=== PATIENT | female | born 1995 | race Caucasian/White ===

== ENCOUNTER 2023-08-24 16:33 | Emergency (ER) | payer SELFPAY ==
[~2023-08-24] VITALS: Ht 167.6 cm; Wt 54.5 kg
[2023-08-24 16:39] VITALS: BP 121/74
[2023-08-24] MEDS ORDERED: Amoxicillin/Clavulanate K+ 875/125 MG TAB PO ONE (17:00)
[2023-08-24] MEDS ORDERED: AMOXICILLIN 8751 TAB PO (17:00)
[2023-08-24 17:42] VITALS: PULSE 70
== END 2023-08-24 17:47 | disposition home or self-care (01) ==
LOC: COL.ER 16:33
DX: S61.259A Open bite of unspecified finger without damage to nail, initial encounter (principal); W55.01XA Bitten by cat, initial encounter; Y99.0 Civilian activity done for income or pay